=== PATIENT | male | born 1955 | race African-American/Black ===

== ENCOUNTER 2017-07-18 01:12 | Inpatient (IN) | payer MEDICARE, MEDICAID ==
[~2017-07-18] VITALS: Ht 172.7 cm; Wt 86.2 kg
[~2017-07-18 01:12] MED LIST: ALBU8TAB4; ALLO100T57 PO; ATOR20TA65; CALC0.253; COLC0.6T66; FLUT1DIS3 INH; FLUT50DI; FURO20TA4; OMEP40CA34; TDUR2; ZAFI20TA12 PO
[2017-07-18] MEDS ORDERED: ASPIRIN 81MG TABLET PO ONE (02:00)
[2017-07-18 02:23] LABS: BG CARBOXYHEMOGLOBIN 0.6 % (0.5-1.5); BG DEOXYHEMOGLOBIN 1.3 % (0.0-5.0); BG FRACTION INSPIRED OXYGEN 28; BG HCO3 ACT 30.7 mmol/L (22.0-26.0); BG METHEMOGLOBIN 0.1 % (0.0-1.5); BG OXYGEN SATURATION 98.7 % (92.0-98.5); BG PCO2 36.1 mmHg (35.0-45.0); BG PH 7.548 (7.350-7.450); BG PO2 120.5 mmHg (75.0-100.0); BG SAMPLE SITE RIGHT RADIAL; BG TOTAL HEMOGLOBIN 12.2 g/dL (12.0-18.0); BG VENT MODE NASAL CANNULA
[2017-07-18 02:42] LABS: HEMATOCRIT. 35.6 % (42.0-52.0); HEMOGLOBIN. 11.2 g/dL (14.0-18.0); MEAN CORPUSCULAR HEMOGLOBIN 29.1 pg (28.0-32.0); MEAN CORPUSCULAR VOLUME 92.2 fL (80.0-94.0); MEAN PLATELET VOLUME 9.2 fl (7.4-10.4); PLATELET 153 x1000/uL (130-400); RED BLOOD CELL COUNT 3.86 mill/uL (4.7-6.1); RED CELL DISTRIBUTION WIDTH 15.9 % (11.6-14.6)
[2017-07-18 02:48] LABS: D-DIMER 1.32 mg/L FEU (<0.50); INR 1.2; PARTIAL THROMBOPLASTIN TIME 32.9 sec (23.4-31.0); PROTHROMBIN TIME 12.1 sec (9.4-11.6)
[2017-07-18 02:54] LABS: CARBON DIOXIDE 38 mEq/L (21-32); CHLORIDE 96 mEq/L (98-107); ETHANOL BLOOD < 10 mg/dL; TROPONIN I 0.08 ng/mL (0.00-0.04)
[2017-07-18 03:29] LABS: PLATELET ESTIMATE NORMAL
[2017-07-18] MEDS ORDERED: TRAMADOL 50MG TABLET PO PRN (06:45)
[2017-07-18] MEDS ORDERED: DOCUSATE SODIUM 100MG CAPSULE PO PRN (06:45)
[2017-07-18] MEDS ORDERED: MORPHINE SULFATE 2 MG/ML CPJ (NOT FOR IM USE) IV PRN (06:45)
[2017-07-18] MEDS ORDERED: ENOXAPARIN 40MG/0.4ML SYR SUBCUT SCH (06:45)
[2017-07-18] MEDS ORDERED: GUAIFENESIN 200MG/10ML SUGAR FREE UDC PO PRN (06:45)
[2017-07-18] MEDS ORDERED: ZOLPIDEM TARTRATE 5MG TABLET PO PRN (06:45)
[2017-07-18] MEDS ORDERED: MAGNESIUM/ALUMINUM HYDROXIDE/SIMETHICONE 30ML UDC PO PRN (06:45)
[2017-07-18] MEDS ORDERED: ACETAMINOPHEN 325MG TABLET PO PRN (06:45)
[2017-07-18] MEDS ORDERED: CLONIDINE 0.1MG TABLET PO PRN (06:45)
[2017-07-18] MEDS ORDERED: ONDANSETRON HCL 4MG/2ML VIAL IV PRN (06:45)
[2017-07-18] MEDS ORDERED: DIPHENHYDRAMINE 50MG/ML VIAL IV PRN (06:45)
[2017-07-18] MEDS ORDERED: NITROGLYCERIN 0.4MG TABLET SL SL PRN (06:45)
[2017-07-18] MEDS: IPRATROPIUM/ALBUTEROL 0.5-3(2.5)MG/3ML NEB INH PRN (07:45)
[2017-07-18] MEDS: SEVELAMER CARBONATE 800 MG TABLET PO SCH ×2 (08:53→17:20)
[2017-07-18] MEDS: FAMOTIDINE 20MG/2ML VIAL IV SCH (08:53)
[2017-07-18] MEDS: ASPIRIN 325MG EC TABLET PO SCH ×3 (08:53→09:00)
[2017-07-18] MEDS: FOLIC ACID/VITAMIN B COMP W-C TABLET PO SCH (08:53)
[2017-07-18] MEDS: ENOXAPARIN 30MG/0.3ML SYR SUBCUT SCH (09:00)
[2017-07-18] MEDS ORDERED: FAMOTIDINE 20MG/2ML VIAL IV SCH (09:00)
[2017-07-18] MEDS ORDERED: DILTIAZEM HCL 30MG TABLET PO SCH (14:15)
[2017-07-18 15:20] VITALS: BP 120/72
[2017-07-18 16:11] VITALS: BP 91/63
[2017-07-18] MEDS ORDERED: MORPHINE SULFATE 4 MG/ML CPJ (NOT FOR IM USE) IV PRN (17:45)
[2017-07-18 19:49] LABS: CREATINE KINASE MB FRACTION 0.8 ng/mL (0.5-3.6); TROPONIN I 0.06 ng/mL (0.00-0.04)
[2017-07-18 20:00] VITALS: BP 102/66
[2017-07-18] MEDS: DILTIAZEM HCL 30MG TABLET PO SCH (20:00)
[2017-07-18] MEDS: LORAZEPAM 2MG/ML CPJ IV PRN (20:02)
[2017-07-19] VITALS: BP 110/65
[2017-07-19] MEDS: LORAZEPAM 2MG/ML CPJ IV PRN ×4 (01:04→21:35)
[2017-07-19] MEDS: DILTIAZEM HCL 30MG TABLET PO SCH ×4 (01:04→20:00)
[2017-07-19 04:00] VITALS: BP 94/69
[2017-07-19 07:18] LABS: HEMATOCRIT. 34.8 % (42.0-52.0); MEAN CORPUSCULAR HEMOGLOBIN 29.2 pg (28.0-32.0); MEAN CORPUSCULAR VOLUME 92.3 fL (80.0-94.0); MEAN PLATELET VOLUME 9.9 fl (7.4-10.4); PLATELET 121 x1000/uL (130-400); RED BLOOD CELL COUNT 3.77 mill/uL (4.7-6.1)
[2017-07-19 07:22] LABS: PHOSPHORUS 3.3 mg/dL (2.5-4.9); TROPONIN I 0.05 ng/mL (0.00-0.04)
[2017-07-19] MEDS: SEVELAMER CARBONATE 800 MG TABLET PO SCH ×3 (07:50→17:50)
[2017-07-19 08:00] VITALS: BP 103/61
[2017-07-19] MEDS ORDERED: MIDODRINE HCL 5MG TABLET PO NR (09:00)
[2017-07-19] MEDS: ALLOPURINOL 100 MG TABLET PO SCH (09:00)
[2017-07-19] MEDS: ASPIRIN 325MG EC TABLET PO SCH (09:00)
[2017-07-19] MEDS: ENOXAPARIN 30MG/0.3ML SYR SUBCUT SCH (09:00)
[2017-07-19] MEDS: FAMOTIDINE 20MG/2ML VIAL IV SCH (09:00)
[2017-07-19] MEDS: FOLIC ACID/VITAMIN B COMP W-C TABLET PO SCH (09:00)
[2017-07-19 11:38] LABS: *AMPHETAMINES SCREEN URINE NEGATIVE (NEGATIVE); *BARBITURATES SCREEN URINE NEGATIVE (NEGATIVE); *BENZODIAZEPINES SCREEN URINE NEGATIVE (NEGATIVE); *COCAINE SCREEN URINE NEGATIVE (NEGATIVE); CANNABINOID URINE SCREEN NEGATIVE (NEGATIVE); METHADONE URINE SCREEN NEGATIVE (NEGATIVE); OPIATES URINE SCREEN NEGATIVE (NEGATIVE); PHENCYCLIDINE URINE SCREEN NEGATIVE (NEGATIVE)
[2017-07-19 15:00] VITALS: BP 93/57
[2017-07-19 16:00] VITALS: BP 94/69
[2017-07-19 17:02] LABS: PLATELET ESTIMATE DECREASED
[2017-07-19 19:13] VITALS: BP 97/70
[2017-07-19] MEDS ORDERED: PREDNISONE 20MG TABLET PO NR (20:00)
[2017-07-19] MEDS ORDERED: FAMOTIDINE 20MG TABLET PO ONE (20:00)
[2017-07-19] MEDS ORDERED: ENOXAPARIN 30MG/0.3ML SYR SUBCUT NR (21:00)
[2017-07-20] VITALS (10 sets, daily range): BP systolic 94–139; BP diastolic 39–80
[2017-07-20] MEDS: DILTIAZEM HCL 30MG TABLET PO SCH ×4 (02:27→20:00)
[2017-07-20 07:44] LABS: BASOPHILS % 0.4 % (0.0-2.0); EOSINOPHILS % 0.2 % (0.0-5.0); HEMATOCRIT. 40.6 % (42.0-52.0); HEMOGLOBIN. 12.9 g/dL (14.0-18.0); LYMPHOCYTES % 8.6 % (20.0-50.0); MEAN CORPUSCULAR HEMOGLOBIN 29.2 pg (28.0-32.0); MEAN CORPUSCULAR VOLUME 92.2 fL (80.0-94.0); MEAN PLATELET VOLUME 10.2 fl (7.4-10.4); MONOCYTES % 4.9 % (2.0-8.0); NEUTROPHILS % 85.9 % (40.0-76.0); PLATELET 125 x1000/uL (130-400); RED BLOOD CELL COUNT 4.41 mill/uL (4.7-6.1); RED CELL DISTRIBUTION WIDTH 15.9 % (11.6-14.6)
[2017-07-20] MEDS: SEVELAMER CARBONATE 800 MG TABLET PO SCH ×3 (07:50→18:31)
[2017-07-20 07:59] LABS: PHOSPHORUS 3.6 mg/dL (2.5-4.9); TROPONIN I 0.04 ng/mL (0.00-0.04)
[2017-07-20] MEDS ORDERED: FAMOTIDINE 20MG TABLET PO NR (08:00)
[2017-07-20] MEDS ORDERED: PREDNISONE 20MG TABLET PO NR (08:00)
[2017-07-20] MEDS: FOLIC ACID/VITAMIN B COMP W-C TABLET PO SCH (08:41)
[2017-07-20] MEDS: ASPIRIN 325MG EC TABLET PO SCH (08:41)
[2017-07-20] MEDS: ALLOPURINOL 100 MG TABLET PO SCH (08:41)
[2017-07-20] MEDS: FAMOTIDINE 20MG/2ML VIAL IV SCH ×2 (08:42→09:00)
[2017-07-20] MEDS ORDERED: LIDOCAINE HCL 1% 20ML VIAL (Pyxis) INJ ONE (11:05)
[2017-07-20] MEDS ORDERED: IODIXANOL 320MG/ML 100 ML BOTTLE IV ONE (11:06)
[2017-07-20] MEDS ORDERED: MIDAZOLAM HCL 2 MG/2 ML VIAL ONE (11:14)
[2017-07-20] MEDS ORDERED: FENTANYL CITRATE/PF 50MCG/ML 2ML VIAL ONE (11:14)
[2017-07-20] MEDS ORDERED: MORPHINE SULFATE 2 MG/ML CPJ (NOT FOR IM USE) IV PRN (11:15)
[2017-07-20] MEDS ORDERED: ATROPINE SULFATE 1MG/10ML SYR IV PRN (11:15)
[2017-07-20] MEDS ORDERED: ACETAMINOPHEN 325MG TABLET PO PRN (11:15)
[2017-07-20] MEDS ORDERED: HEPARIN SODIUM 1,000 UNIT/1ML VIAL IV ONE ×2 (11:16→11:30)
[2017-07-20] MEDS ORDERED: HYDROCORTISONE SOD SUCCINATE 250 MG/2 ML VIAL ONE (11:19)
[2017-07-20] MEDS ORDERED: DIPHENHYDRAMINE 50MG/ML VIAL ONE (11:19)
[2017-07-20] MEDS ORDERED: FAMOTIDINE 20MG/2ML VIAL IV ONE (11:20)
[2017-07-20] MEDS ORDERED: NITROGLYCERIN 50MCG/ML 10ML VIAL (CATH LAB) IV ONE (14:16)
[2017-07-21] VITALS (17 sets, daily range): BP systolic 82–120; BP diastolic 39–88
[2017-07-21] MEDS: DILTIAZEM HCL 30MG TABLET PO SCH ×4 (01:50→20:28)
[2017-07-21 07:48] LABS: PHOSPHORUS 3.9 mg/dL (2.5-4.9)
[2017-07-21 07:53] LABS: BASOPHILS % 0.4 % (0.0-2.0); EOSINOPHILS % 0.1 % (0.0-5.0); HEMATOCRIT. 37.9 % (42.0-52.0); HEMOGLOBIN. 11.9 g/dL (14.0-18.0); LYMPHOCYTES % 9.6 % (20.0-50.0); MEAN CORPUSCULAR HEMOGLOBIN 29.2 pg (28.0-32.0); MEAN CORPUSCULAR VOLUME 92.8 fL (80.0-94.0); MEAN PLATELET VOLUME 10.5 fl (7.4-10.4); MONOCYTES % 13.3 % (2.0-8.0); NEUTROPHILS % 76.6 % (40.0-76.0); PLATELET 127 x1000/uL (130-400); RED BLOOD CELL COUNT 4.08 mill/uL (4.7-6.1); RED CELL DISTRIBUTION WIDTH 15.8 % (11.6-14.6)
[2017-07-21] MEDS: FOLIC ACID/VITAMIN B COMP W-C TABLET PO SCH (08:32)
[2017-07-21] MEDS: SEVELAMER CARBONATE 800 MG TABLET PO SCH ×3 (08:32→18:17)
[2017-07-21] MEDS: ASPIRIN 325MG EC TABLET PO SCH (08:32)
[2017-07-21] MEDS: ALLOPURINOL 100 MG TABLET PO SCH (08:33)
[2017-07-21] MEDS: FAMOTIDINE 20MG/2ML VIAL IV SCH (08:36)
[2017-07-21] MEDS: MIDODRINE HCL 5MG TABLET PO SCH ×2 (08:36→16:26)
[2017-07-21] MEDS ORDERED: MIDODRINE HCL 5MG TABLET PO SCH (10:00)
[2017-07-21] MEDS: ENOXAPARIN 80MG/0.8ML SYR SUBCUT SCH (14:22)
[2017-07-21] MEDS ORDERED: ALTEPLASE 2MG/VIAL ITC NR (15:00)
[2017-07-22] VITALS (19 sets, daily range): BP systolic 84–129; BP diastolic 54–88
[2017-07-22] MEDS: IPRATROPIUM/ALBUTEROL 0.5-3(2.5)MG/3ML NEB INH PRN ×2 (00:55→06:19)
[2017-07-22] MEDS: DILTIAZEM HCL 30MG TABLET PO SCH ×4 (02:00→20:00)
[2017-07-22 07:26] LABS: PHOSPHORUS 2.9 mg/dL (2.5-4.9)
[2017-07-22 07:47] LABS: HEMATOCRIT. 39.4 % (42.0-52.0); HEMOGLOBIN. 12.6 g/dL (14.0-18.0); MEAN CORPUSCULAR HEMOGLOBIN 29.1 pg (28.0-32.0); MEAN CORPUSCULAR VOLUME 91.2 fL (80.0-94.0); MEAN PLATELET VOLUME 10.7 fl (7.4-10.4); PLATELET 101 x1000/uL (130-400); RED BLOOD CELL COUNT 4.31 mill/uL (4.7-6.1); RED CELL DISTRIBUTION WIDTH 15.9 % (11.6-14.6)
[2017-07-22] MEDS: ALLOPURINOL 100 MG TABLET PO SCH (08:50)
[2017-07-22] MEDS: ASPIRIN 325MG EC TABLET PO SCH (08:50)
[2017-07-22] MEDS: FAMOTIDINE 20MG TABLET PO SCH (08:50)
[2017-07-22] MEDS: SEVELAMER CARBONATE 800 MG TABLET PO SCH ×3 (08:50→17:55)
[2017-07-22] MEDS: FOLIC ACID/VITAMIN B COMP W-C TABLET PO SCH (08:51)
[2017-07-22] MEDS: MIDODRINE HCL 5MG TABLET PO SCH ×2 (08:51→17:55)
[2017-07-22] MEDS: ENOXAPARIN 80MG/0.8ML SYR SUBCUT SCH (12:00)
[2017-07-22 14:15] LABS: PLATELET ESTIMATE DECREASED
[2017-07-23] VITALS (15 sets, daily range): BP systolic 83–112; BP diastolic 45–78
[2017-07-23] MEDS: DILTIAZEM HCL 30MG TABLET PO SCH ×4 (02:00→20:00)
[2017-07-23 06:10] LABS: BASOPHILS % 0.9 % (0.0-2.0); EOSINOPHILS % 6.4 % (0.0-5.0); HEMATOCRIT. 38.1 % (42.0-52.0); LYMPHOCYTES % 21.4 % (20.0-50.0); MEAN CORPUSCULAR HEMOGLOBIN 29.4 pg (28.0-32.0); MEAN CORPUSCULAR VOLUME 93.3 fL (80.0-94.0); MEAN PLATELET VOLUME 10.3 fl (7.4-10.4); MONOCYTES % 11.5 % (2.0-8.0); NEUTROPHILS % 59.8 % (40.0-76.0); PLATELET 122 x1000/uL (130-400); RED BLOOD CELL COUNT 4.08 mill/uL (4.7-6.1); RED CELL DISTRIBUTION WIDTH 16.2 % (11.6-14.6)
[2017-07-23 06:35] LABS: PHOSPHORUS 3.7 mg/dL (2.5-4.9)
[2017-07-23] MEDS: SEVELAMER CARBONATE 800 MG TABLET PO SCH ×3 (07:52→17:57)
[2017-07-23] MEDS: ASPIRIN 325MG EC TABLET PO SCH (08:00)
[2017-07-23] MEDS: FAMOTIDINE 20MG TABLET PO SCH (08:01)
[2017-07-23] MEDS: FOLIC ACID/VITAMIN B COMP W-C TABLET PO SCH (08:02)
[2017-07-23] MEDS ORDERED: MIDODRINE HCL 5MG TABLET PO SCH ×3 (09:00→21:00)
[2017-07-23] MEDS: ALLOPURINOL 100 MG TABLET PO SCH (10:17)
[2017-07-23] MEDS: ENOXAPARIN 80MG/0.8ML SYR SUBCUT SCH (12:31)
[2017-07-23] MEDS: MIDODRINE HCL 5MG TABLET PO SCH ×2 (14:31→22:11)
[2017-07-24] VITALS (12 sets, daily range): BP systolic 92–171; BP diastolic 40–108
[2017-07-24] MEDS: DILTIAZEM HCL 30MG TABLET PO SCH ×3 (02:00→14:48)
[2017-07-24 06:02] LABS: HEMATOCRIT. 34.1 % (42.0-52.0); HEMOGLOBIN. 10.9 g/dL (14.0-18.0); MEAN CORPUSCULAR HEMOGLOBIN 29.2 pg (28.0-32.0); MEAN CORPUSCULAR VOLUME 91.6 fL (80.0-94.0); MEAN PLATELET VOLUME 9.9 fl (7.4-10.4); PLATELET 102 x1000/uL (130-400); RED BLOOD CELL COUNT 3.72 mill/uL (4.7-6.1); RED CELL DISTRIBUTION WIDTH 16.1 % (11.6-14.6)
[2017-07-24] MEDS: MIDODRINE HCL 5MG TABLET PO SCH ×2 (06:11→14:44)
[2017-07-24 07:35] LABS: PHOSPHORUS 3.6 mg/dL (2.5-4.9)
[2017-07-24] MEDS: SEVELAMER CARBONATE 800 MG TABLET PO SCH ×2 (07:46→12:20)
[2017-07-24] MEDS: ASPIRIN 325MG EC TABLET PO SCH (08:01)
[2017-07-24] MEDS: FOLIC ACID/VITAMIN B COMP W-C TABLET PO SCH (08:01)
[2017-07-24] MEDS: ALLOPURINOL 100 MG TABLET PO SCH (08:01)
[2017-07-24] MEDS: FAMOTIDINE 20MG TABLET PO SCH (08:01)
[2017-07-24] MEDS ORDERED: DOCUSATE SODIUM 100MG CAPSULE PO SCH (09:00)
[2017-07-24] MEDS ORDERED: HEPARIN SODIUM 1,000 UNIT/1ML VIAL IV ONE ×2 (11:00)
[2017-07-24] MEDS: METOCLOPRAMIDE HCL 5MG TABLET PO SCH ×2 (11:50→13:51)
[2017-07-24] MEDS: ENOXAPARIN 80MG/0.8ML SYR SUBCUT SCH ×2 (12:00→13:51)
[2017-07-24 16:45] LABS: PLATELET ESTIMATE DECREASED
== END 2017-07-24 15:50 | DRG 286 ==
LOC: ER 01:12 → 6WST 03:19 → SUPCPDRO 06:35 → ENRESERV 11:41 → CANRESERV 11:41 → ENRESERV 13:24 → 3WST 07-20 13:09
PROVIDERS: ADMIT Internal Medicine; ATTEND Internal Medicine
PROC: 5A1D60Z (ICD-10-PCS; 2017-07-19)
PROC: 4A023N7 Measurement of Cardiac Sampling and Pressure, Left Heart, Percutaneous Approach (ICD-10-PCS; principal; 2017-07-20)
PROC: B2111ZZ Fluoroscopy of Multiple Coronary Arteries using Low Osmolar Contrast (ICD-10-PCS; 2017-07-20)
DX: I13.2 Hypertensive heart and chronic kidney disease with heart failure and with stage 5 chronic kidney disease, or end stage renal disease (principal); E43 Unspecified severe protein-calorie malnutrition; J96.01 Acute respiratory failure with hypoxia; N18.6 End stage renal disease; I42.9 Cardiomyopathy, unspecified; D69.6 Thrombocytopenia, unspecified; I48.1 Persistent atrial fibrillation; I50.43 Acute on chronic combined systolic (congestive) and diastolic (congestive) heart failure; I95.9 Hypotension, unspecified; Z99.81 Dependence on supplemental oxygen; Z99.2 Dependence on renal dialysis; D63.8 Anemia in other chronic diseases classified elsewhere; E78.00 Pure hypercholesterolemia, unspecified; E87.6 Hypokalemia; G62.9 Polyneuropathy, unspecified; H54.8 Legal blindness, as defined in USA; I25.10 Atherosclerotic heart disease of native coronary artery without angina pectoris; I95.1 Orthostatic hypotension; J44.9 Chronic obstructive pulmonary disease, unspecified; M10.9 Gout, unspecified; Z82.49 Family history of ischemic heart disease and other diseases of the circulatory system; Z90.49 Acquired absence of other specified parts of digestive tract; Z86.19 Personal history of other infectious and parasitic diseases; Z91.013 Allergy to seafood; E66.9 Obesity, unspecified; J45.909 Unspecified asthma, uncomplicated; Z79.899 Other long term (current) drug therapy; Z90.89 Acquired absence of other organs; Z80.9 Family history of malignant neoplasm, unspecified; Z84.1 Family history of disorders of kidney and ureter; Z68.28 Body mass index [BMI] 28.0-28.9, adult
CPT/HCPCS: 36415; 36600; 71010; 78580; 80048; 80053; 80061; 80305; 82375; 82550; 82553; 82805; 83036; 83605; 83735; 83880; 84100; 84134; 84484; 85025; 85347; 85379; 85610; 85730; 93005; 93306; 93458; 93970; 94640; 97110; 97162; 97166; 97168; 97530; 99285; C1769; C1893; G0482; J1200; J1644; J1650; J1720; J2060; J2250; J2405; J2997; J3010; J3490; J7030; J7040; J7512; J7620; J8597; Q9967

== ENCOUNTER 2017-07-24 16:15 | Inpatient (IN) | payer MEDICARE, MEDICAID ==
[~2017-07-24] VITALS: Ht 172.7 cm; Wt 86.2 kg
[2017-07-24 15:45] VITALS: BP 98/71
[2017-07-24] MEDS ORDERED: MAGNESIUM/ALUMINUM HYDROXIDE/SIMETHICONE 30ML UDC PO PRN (17:45)
[2017-07-24] MEDS ORDERED: DIPHENHYDRAMINE 25MG CAPSULE PO PRN (17:45)
[2017-07-24] MEDS ORDERED: TRAMADOL 50MG TABLET PO PRN (17:45)
[2017-07-24] MEDS ORDERED: NITROGLYCERIN 0.4MG TABLET SL SL PRN (17:45)
[2017-07-24] MEDS ORDERED: CLONIDINE 0.1MG TABLET PO PRN (17:45)
[2017-07-24] MEDS ORDERED: ACETAMINOPHEN 325MG TABLET PO PRN (17:45)
[2017-07-24] MEDS: DILTIAZEM HCL 30MG TABLET PO SCH (18:00)
[2017-07-24 19:00] VITALS: BP 109/74
[2017-07-24] MEDS: IPRATROPIUM/ALBUTEROL 0.5-3(2.5)MG/3ML NEB HHN PRN (21:12)
[2017-07-24] MEDS: METOCLOPRAMIDE HCL 5MG TABLET PO SCH (22:19)
[2017-07-25] MEDS: IPRATROPIUM/ALBUTEROL 0.5-3(2.5)MG/3ML NEB HHN PRN ×2 (00:44→04:12)
[2017-07-25] MEDS: DILTIAZEM HCL 30MG TABLET PO SCH ×4 (05:50→17:32)
[2017-07-25] MEDS: METOCLOPRAMIDE HCL 5MG TABLET PO SCH ×4 (05:52→23:04)
[2017-07-25 08:00] VITALS: BP 110/81
[2017-07-25 08:03] LABS: HEMATOCRIT. 37.1 % (42.0-52.0); HEMOGLOBIN. 11.8 g/dL (14.0-18.0); MEAN CORPUSCULAR HEMOGLOBIN 29.3 pg (28.0-32.0); MEAN CORPUSCULAR VOLUME 92.1 fL (80.0-94.0); MEAN PLATELET VOLUME 10.4 fl (7.4-10.4); PLATELET 94 x1000/uL (130-400); RED BLOOD CELL COUNT 4.03 mill/uL (4.7-6.1); RED CELL DISTRIBUTION WIDTH 16.4 % (11.6-14.6)
[2017-07-25] MEDS: DOCUSATE SODIUM 100MG CAPSULE PO SCH ×2 (08:20→17:31)
[2017-07-25] MEDS: ASPIRIN 325MG EC TABLET PO SCH (08:20)
[2017-07-25] MEDS: FOLIC ACID/VITAMIN B COMP W-C TABLET PO SCH (08:20)
[2017-07-25] MEDS: ENOXAPARIN 80MG/0.8ML SYR SUBCUT SCH (08:21)
[2017-07-25] MEDS: MIDODRINE HCL 5MG TABLET PO SCH ×3 (08:22→17:32)
[2017-07-25] MEDS ORDERED: ALLOPURINOL 100 MG TABLET PO SCH (09:00)
[2017-07-25] MEDS ORDERED: FAMOTIDINE 20MG TABLET PO SCH (09:00)
[2017-07-25] MEDS ORDERED: SEVELAMER CARBONATE 800 MG TABLET PO SCH (09:00)
[2017-07-25 12:00] VITALS: BP 106/69
[2017-07-25 13:21] LABS: PLATELET ESTIMATE SLIGHTLY DECREASED
[2017-07-25] MEDS ORDERED: ALPRAZOLAM 0.5 MG TABLET PO PRN (16:30)
[2017-07-25 17:30] VITALS: BP 100/82
[2017-07-25 20:00] VITALS: BP 112/69
[2017-07-25] MEDS: BUDESONIDE 0.5MG/2ML NEB HHN SCH (21:26)
[2017-07-25] MEDS: IPRATROPIUM/ALBUTEROL 0.5-3(2.5)MG/3ML NEB HHN SCH (21:28)
[2017-07-26] MEDS: IPRATROPIUM/ALBUTEROL 0.5-3(2.5)MG/3ML NEB HHN SCH ×4 (03:49→20:41)
[2017-07-26] MEDS: DILTIAZEM HCL 30MG TABLET PO SCH ×4 (06:00→17:56)
[2017-07-26] MEDS: OMEPRAZOLE 20MG CAPSULE EXTENDED RELEASE PO SCH (06:33)
[2017-07-26] MEDS: METOCLOPRAMIDE HCL 5MG TABLET PO SCH ×4 (06:33→22:41)
[2017-07-26 07:31] LABS: CARBON DIOXIDE 22 mEq/L (21-32); CHLORIDE 104 mEq/L (98-107); HDL CHOLESTEROL 65 mg/dL (40-59); LDL CHOLESTEROL 39 mg/dL (5-100); PHOSPHORUS 4.1 mg/dL (2.5-4.9)
[2017-07-26 07:33] LABS: HEMATOCRIT. 35.2 % (42.0-52.0); HEMOGLOBIN. 11.2 g/dL (14.0-18.0); MEAN CORPUSCULAR HEMOGLOBIN 29.3 pg (28.0-32.0); MEAN PLATELET VOLUME 10.1 fl (7.4-10.4); PLATELET 95 x1000/uL (130-400); RED BLOOD CELL COUNT 3.83 mill/uL (4.7-6.1); RED CELL DISTRIBUTION WIDTH 16.5 % (11.6-14.6)
[2017-07-26 07:36] LABS: PROSTRATE SPECIFIC AG TOTAL 0.36 ng/mL (0.0-4.0)
[2017-07-26 07:42] LABS: TOTAL IRON BINDING CAPACITY 233 ug/dL (250-450)
[2017-07-26 08:00] VITALS: BP 112/68
[2017-07-26] MEDS: BUDESONIDE 0.5MG/2ML NEB HHN SCH ×2 (08:09→20:41)
[2017-07-26] MEDS ORDERED: ALPRAZOLAM 0.5 MG TABLET PO PRN ×2 (08:45→16:45)
[2017-07-26] MEDS: FOLIC ACID/VITAMIN B COMP W-C TABLET PO SCH (09:29)
[2017-07-26] MEDS: DOCUSATE SODIUM 100MG CAPSULE PO SCH ×2 (09:30→16:08)
[2017-07-26] MEDS: MIDODRINE HCL 5MG TABLET PO SCH ×3 (09:30→16:09)
[2017-07-26] MEDS: ASPIRIN 325MG EC TABLET PO SCH (09:30)
[2017-07-26] MEDS: ENOXAPARIN 80MG/0.8ML SYR SUBCUT SCH (09:31)
[2017-07-26 15:16] LABS: INR 1.1; PROTHROMBIN TIME 11.4 sec (9.4-11.6)
[2017-07-26] MEDS ORDERED: ALTEPLASE 100MG/VIAL IV STA ×2 (17:32→17:37)
[2017-07-26] MEDS ORDERED: ALTEPLASE 2MG/VIAL ITC SCH (17:45)
[2017-07-26] MEDS ORDERED: WARFARIN SODIUM 7.5MG TABLET PO SCH (18:00)
[2017-07-26] MEDS ORDERED: WARFARIN SODIUM 5MG TABLET PO NR (19:18)
[2017-07-26 20:00] VITALS: BP 117/90
[2017-07-26 20:29] LABS: PLATELET ESTIMATE DECREASED
[2017-07-27] MEDS: IPRATROPIUM/ALBUTEROL 0.5-3(2.5)MG/3ML NEB HHN SCH ×4 (01:06→20:52)
[2017-07-27] MEDS: ALPRAZOLAM 0.25 MG TABLET PO PRN ×2 (02:28→21:14)
[2017-07-27] MEDS: DILTIAZEM HCL 30MG TABLET PO SCH ×5 (06:42→23:55)
[2017-07-27] MEDS: METOCLOPRAMIDE HCL 5MG TABLET PO SCH ×4 (06:44→21:14)
[2017-07-27 07:02] LABS: INR 1.1; PROTHROMBIN TIME 11.7 sec (9.4-11.6)
[2017-07-27 07:03] LABS: HEMATOCRIT. 36.7 % (42.0-52.0); HEMOGLOBIN. 11.6 g/dL (14.0-18.0); MEAN CORPUSCULAR HEMOGLOBIN 29.2 pg (28.0-32.0); MEAN CORPUSCULAR VOLUME 92.3 fL (80.0-94.0); MEAN PLATELET VOLUME 10.2 fl (7.4-10.4); PLATELET 87 x1000/uL (130-400); RED BLOOD CELL COUNT 3.97 mill/uL (4.7-6.1); RED CELL DISTRIBUTION WIDTH 16.7 % (11.6-14.6)
[2017-07-27] MEDS: BUDESONIDE 0.5MG/2ML NEB HHN SCH ×2 (07:36→20:52)
[2017-07-27 07:42] LABS: CARBON DIOXIDE 23 mEq/L (21-32); CHLORIDE 103 mEq/L (98-107); T4 FREE 1.59 ng/dL (0.76-1.46)
[2017-07-27] MEDS: OMEPRAZOLE 20MG CAPSULE EXTENDED RELEASE PO SCH (07:55)
[2017-07-27 08:00] VITALS: BP 118/88
[2017-07-27] MEDS: ENOXAPARIN 80MG/0.8ML SYR SUBCUT SCH (09:15)
[2017-07-27] MEDS: DOCUSATE SODIUM 100MG CAPSULE PO SCH ×2 (09:15→18:07)
[2017-07-27] MEDS: FOLIC ACID/VITAMIN B COMP W-C TABLET PO SCH (09:15)
[2017-07-27] MEDS: ASPIRIN 325MG EC TABLET PO SCH (09:15)
[2017-07-27] MEDS: MIDODRINE HCL 5MG TABLET PO SCH ×3 (09:15→18:07)
[2017-07-27] MEDS ORDERED: CARVEDILOL 12.5MG TABLET PO SCH (10:00)
[2017-07-27] MEDS: ONDANSETRON HCL 4MG TABLET PO PRN (13:41)
[2017-07-27] MEDS: ERYTHROMYCIN 250MG TABLET PO SCH ×2 (14:14→21:14)
[2017-07-27 15:47] LABS: PLATELET ESTIMATE DECREASED
[2017-07-27 20:00] VITALS: BP 131/88
[2017-07-28] MEDS: IPRATROPIUM/ALBUTEROL 0.5-3(2.5)MG/3ML NEB HHN SCH ×4 (01:50→23:05)
[2017-07-28] MEDS: DILTIAZEM HCL 30MG TABLET PO SCH ×3 (05:23→17:29)
[2017-07-28] MEDS: METOCLOPRAMIDE HCL 5MG TABLET PO SCH ×3 (06:01→17:29)
[2017-07-28] MEDS: OMEPRAZOLE 20MG CAPSULE EXTENDED RELEASE PO SCH (06:01)
[2017-07-28 07:17] LABS: HEMATOCRIT. 35.5 % (42.0-52.0); HEMOGLOBIN. 11.3 g/dL (14.0-18.0); MEAN CORPUSCULAR HEMOGLOBIN 29.7 pg (28.0-32.0); MEAN CORPUSCULAR VOLUME 92.9 fL (80.0-94.0); MEAN PLATELET VOLUME 10.1 fl (7.4-10.4); PLATELET 89 x1000/uL (130-400); RED BLOOD CELL COUNT 3.82 mill/uL (4.7-6.1); RED CELL DISTRIBUTION WIDTH 16.6 % (11.6-14.6)
[2017-07-28 07:30] LABS: PHOSPHORUS 4.5 mg/dL (2.5-4.9)
[2017-07-28] MEDS: BUDESONIDE 0.5MG/2ML NEB HHN SCH (07:44)
[2017-07-28 08:00] VITALS: BP 101/70
[2017-07-28] MEDS: MIDODRINE HCL 5MG TABLET PO SCH ×3 (08:13→17:29)
[2017-07-28] MEDS: FOLIC ACID/VITAMIN B COMP W-C TABLET PO SCH (08:13)
[2017-07-28] MEDS: DOCUSATE SODIUM 100MG CAPSULE PO SCH ×2 (08:13→17:29)
[2017-07-28] MEDS: ASPIRIN 325MG EC TABLET PO SCH (08:13)
[2017-07-28] MEDS: PANTOT AC/MIN OIL/PET HY-PHL OINT 52.5GM (AQUAPHOR) TOP SCH (08:14)
[2017-07-28] MEDS ORDERED: ALPRAZOLAM 0.25 MG TABLET PO PRN (08:43)
[2017-07-28] MEDS ORDERED: CARVEDILOL 3.125 MG TABLET PO SCH (09:00)
[2017-07-28 20:00] VITALS: BP 112/74
[2017-07-28] MEDS ORDERED: METOPROLOL TARTRATE 25MG TABLET PO SCH (21:00)
[2017-07-28 21:34] LABS: PLATELET ESTIMATE DECREASED
[2017-07-29] MEDS: IPRATROPIUM/ALBUTEROL 0.5-3(2.5)MG/3ML NEB HHN SCH ×4 (02:59→21:18)
[2017-07-29] MEDS: DILTIAZEM HCL 30MG TABLET PO SCH ×4 (06:00→20:38)
[2017-07-29] MEDS: METOCLOPRAMIDE HCL 5MG TABLET PO SCH ×3 (06:52→16:07)
[2017-07-29] MEDS: OMEPRAZOLE 20MG CAPSULE EXTENDED RELEASE PO SCH (06:52)
[2017-07-29 08:00] VITALS: BP 103/70
[2017-07-29] MEDS: DOCUSATE SODIUM 100MG CAPSULE PO SCH ×2 (08:41→16:06)
[2017-07-29] MEDS: ASPIRIN 81MG EC TABLET PO SCH (08:41)
[2017-07-29] MEDS: FOLIC ACID/VITAMIN B COMP W-C TABLET PO SCH (08:41)
[2017-07-29] MEDS: MIDODRINE HCL 5MG TABLET PO SCH ×3 (08:41→16:07)
[2017-07-29] MEDS: METOPROLOL TARTRATE 25MG TABLET PO SCH ×2 (08:42→20:38)
[2017-07-29] MEDS: PANTOT AC/MIN OIL/PET HY-PHL OINT 52.5GM (AQUAPHOR) TOP SCH (08:43)
[2017-07-29 10:07] LABS: 25-HYDROXY VITAMIN D3 36 ng/mL (.)
[2017-07-29] MEDS: ONDANSETRON HCL 4MG TABLET PO PRN (18:16)
[2017-07-29 20:00] VITALS: BP 113/76
[2017-07-30] MEDS: IPRATROPIUM/ALBUTEROL 0.5-3(2.5)MG/3ML NEB HHN SCH ×5 (02:41→23:00)
[2017-07-30] MEDS: OMEPRAZOLE 20MG CAPSULE EXTENDED RELEASE PO SCH (06:01)
[2017-07-30] MEDS: METOCLOPRAMIDE HCL 5MG TABLET PO SCH ×3 (06:01→17:19)
[2017-07-30 08:00] VITALS: BP 101/76
[2017-07-30] MEDS: DILTIAZEM HCL 30MG TABLET PO SCH ×2 (08:42→21:46)
[2017-07-30] MEDS: DOCUSATE SODIUM 100MG CAPSULE PO SCH ×2 (08:47→17:19)
[2017-07-30] MEDS: FOLIC ACID/VITAMIN B COMP W-C TABLET PO SCH (08:48)
[2017-07-30] MEDS: METOPROLOL TARTRATE 25MG TABLET PO SCH ×2 (08:48→21:45)
[2017-07-30] MEDS: ASPIRIN 81MG EC TABLET PO SCH (08:48)
[2017-07-30] MEDS: MIDODRINE HCL 5MG TABLET PO SCH ×3 (08:49→17:19)
[2017-07-30] MEDS: PANTOT AC/MIN OIL/PET HY-PHL OINT 52.5GM (AQUAPHOR) TOP SCH (13:54)
[2017-07-30 20:00] VITALS: BP 107/76
[2017-07-30] MEDS: GUAIFENESIN 200MG/10ML SUGAR FREE UDC PO PRN (21:48)
[2017-07-31] MEDS: ONDANSETRON HCL 4MG TABLET PO PRN ×2 (01:44→09:40)
[2017-07-31] MEDS: IPRATROPIUM/ALBUTEROL 0.5-3(2.5)MG/3ML NEB HHN SCH ×4 (02:45→19:46)
[2017-07-31] MEDS: METOCLOPRAMIDE HCL 5MG TABLET PO SCH ×4 (06:58→23:45)
[2017-07-31] MEDS: OMEPRAZOLE 20MG CAPSULE EXTENDED RELEASE PO SCH (06:58)
[2017-07-31 07:22] LABS: HEMATOCRIT. 36.5 % (42.0-52.0); HEMOGLOBIN. 11.6 g/dL (14.0-18.0); MEAN CORPUSCULAR HEMOGLOBIN 29.5 pg (28.0-32.0); MEAN CORPUSCULAR VOLUME 93.1 fL (80.0-94.0); MEAN PLATELET VOLUME 10.5 fl (7.4-10.4); PLATELET 100 x1000/uL (130-400); RED BLOOD CELL COUNT 3.92 mill/uL (4.7-6.1); RED CELL DISTRIBUTION WIDTH 16.5 % (11.6-14.6)
[2017-07-31 07:50] LABS: T4 FREE 1.39 ng/dL (0.76-1.46)
[2017-07-31 08:00] VITALS: BP 112/88
[2017-07-31] MEDS ORDERED: ALPRAZOLAM 0.25 MG TABLET PO PRN (08:43)
[2017-07-31] MEDS: FOLIC ACID/VITAMIN B COMP W-C TABLET PO SCH (09:39)
[2017-07-31] MEDS: MIDODRINE HCL 5MG TABLET PO SCH ×3 (09:40→18:03)
[2017-07-31] MEDS: METOPROLOL TARTRATE 25MG TABLET PO SCH ×2 (09:40→23:48)
[2017-07-31] MEDS: DOCUSATE SODIUM 100MG CAPSULE PO SCH ×2 (09:54→18:04)
[2017-07-31] MEDS: ASPIRIN 81MG EC TABLET PO SCH (09:54)
[2017-07-31] MEDS: DILTIAZEM HCL 30MG TABLET PO SCH ×2 (09:54→23:47)
[2017-07-31] MEDS: PANTOT AC/MIN OIL/PET HY-PHL OINT 52.5GM (AQUAPHOR) TOP SCH (09:55)
[2017-07-31] MEDS: LACTULOSE 20G/30ML UDC PO SCH ×3 (09:56→20:00)
[2017-07-31 16:34] LABS: PLATELET ESTIMATE DECREASED
[2017-07-31] MEDS: FLUTICASONE PROPIONATE 50MCG/SPRAY BOTTLE BOTHNSTRLS SCH ×2 (18:06→23:52)
[2017-07-31 19:00] VITALS: BP 117/75
[2017-07-31] MEDS ORDERED: HEPARIN SODIUM 1,000 UNIT/1ML VIAL IV NR (19:45)
[2017-08-01] MEDS: IPRATROPIUM/ALBUTEROL 0.5-3(2.5)MG/3ML NEB HHN SCH ×4 (01:01→20:39)
[2017-08-01] MEDS: OMEPRAZOLE 20MG CAPSULE EXTENDED RELEASE PO SCH (06:45)
[2017-08-01] MEDS: METOCLOPRAMIDE HCL 5MG TABLET PO SCH ×4 (06:45→20:53)
[2017-08-01 08:00] VITALS: BP 105/71
[2017-08-01] MEDS: FLUTICASONE PROPIONATE 50MCG/SPRAY BOTTLE BOTHNSTRLS SCH ×2 (08:35→20:52)
[2017-08-01] MEDS: ASPIRIN 81MG EC TABLET PO SCH (08:36)
[2017-08-01] MEDS: DOCUSATE SODIUM 100MG CAPSULE PO SCH ×2 (08:36→17:30)
[2017-08-01] MEDS: FOLIC ACID/VITAMIN B COMP W-C TABLET PO SCH (08:36)
[2017-08-01] MEDS: PANTOT AC/MIN OIL/PET HY-PHL OINT 52.5GM (AQUAPHOR) TOP SCH (08:36)
[2017-08-01] MEDS: METOPROLOL TARTRATE 25MG TABLET PO SCH ×2 (08:40→20:54)
[2017-08-01] MEDS: MIDODRINE HCL 5MG TABLET PO SCH ×3 (08:41→17:31)
[2017-08-01] MEDS: DILTIAZEM HCL 30MG TABLET PO SCH ×2 (08:41→20:53)
[2017-08-01] MEDS ORDERED: HEPARIN SODIUM 1,000 UNIT/1ML VIAL IV SCH (10:30)
[2017-08-01 14:04] LABS: HEPATITIS B SURFACE ANTIGEN NEGATIVE
[2017-08-01 14:32] LABS: HEPATITIS B CORE AB IGM NEGATIVE
[2017-08-01 14:34] LABS: HEPATITIS A AB IGM NEGATIVE (NEGATIVE)
[2017-08-01] MEDS ORDERED: ALPRAZOLAM 0.25 MG TABLET PO PRN (16:43)
[2017-08-01 20:00] VITALS: BP 95/67
[2017-08-01] MEDS: POLYETHYLENE GLYCOL 3350 (17GM) 1 DOSE PACK PO SCH (20:53)
[2017-08-02] MEDS: IPRATROPIUM/ALBUTEROL 0.5-3(2.5)MG/3ML NEB HHN SCH ×3 (00:56→21:15)
[2017-08-02] MEDS: METOCLOPRAMIDE HCL 5MG TABLET PO SCH ×4 (06:07→20:54)
[2017-08-02] MEDS: OMEPRAZOLE 20MG CAPSULE EXTENDED RELEASE PO SCH (06:07)
[2017-08-02 06:35] LABS: HEMOGLOBIN. 10.2 g/dL (14.0-18.0); MEAN CORPUSCULAR HEMOGLOBIN 29.2 pg (28.0-32.0); MEAN CORPUSCULAR VOLUME 91.6 fL (80.0-94.0); MEAN PLATELET VOLUME 10.3 fl (7.4-10.4); PLATELET 111 x1000/uL (130-400); RED CELL DISTRIBUTION WIDTH 16.6 % (11.6-14.6)
[2017-08-02 07:26] LABS: CHLORIDE 104 mEq/L (98-107)
[2017-08-02 07:37] LABS: CARBON DIOXIDE 22 mEq/L (21-32); PHOSPHORUS 2.8 mg/dL (2.5-4.9)
[2017-08-02 08:00] VITALS: BP 96/73
[2017-08-02 08:42] VITALS: BP 96/73
[2017-08-02] MEDS: ONDANSETRON HCL 4MG TABLET PO PRN (08:45)
[2017-08-02] MEDS: DILTIAZEM HCL 30MG TABLET PO SCH ×2 (09:00→20:54)
[2017-08-02] MEDS: METOPROLOL TARTRATE 25MG TABLET PO SCH ×2 (09:00→20:54)
[2017-08-02] MEDS: MIDODRINE HCL 5MG TABLET PO SCH ×3 (10:06→18:04)
[2017-08-02] MEDS: FOLIC ACID/VITAMIN B COMP W-C TABLET PO SCH (10:06)
[2017-08-02] MEDS: ASPIRIN 81MG EC TABLET PO SCH (10:06)
[2017-08-02] MEDS: DOCUSATE SODIUM 100MG CAPSULE PO SCH ×2 (10:07→18:04)
[2017-08-02] MEDS: PANTOT AC/MIN OIL/PET HY-PHL OINT 52.5GM (AQUAPHOR) TOP SCH (10:08)
[2017-08-02] MEDS: FLUTICASONE PROPIONATE 50MCG/SPRAY BOTTLE BOTHNSTRLS SCH ×2 (10:08→20:54)
[2017-08-02 11:52] LABS: PLATELET ESTIMATE DECREASED
[2017-08-02 20:00] VITALS: BP 108/89
[2017-08-02] MEDS: POLYETHYLENE GLYCOL 3350 (17GM) 1 DOSE PACK PO SCH (20:54)
[2017-08-03] MEDS: IPRATROPIUM/ALBUTEROL 0.5-3(2.5)MG/3ML NEB HHN SCH ×4 (01:28→21:05)
[2017-08-03] MEDS: OMEPRAZOLE 20MG CAPSULE EXTENDED RELEASE PO SCH (06:20)
[2017-08-03] MEDS: METOCLOPRAMIDE HCL 5MG TABLET PO SCH ×4 (06:20→20:58)
[2017-08-03 06:40] LABS: HEMATOCRIT. 34.8 % (42.0-52.0); HEMOGLOBIN. 11.3 g/dL (14.0-18.0); MEAN CORPUSCULAR HEMOGLOBIN 29.8 pg (28.0-32.0); MEAN CORPUSCULAR VOLUME 91.3 fL (80.0-94.0); MEAN PLATELET VOLUME 10.6 fl (7.4-10.4); PLATELET 105 x1000/uL (130-400); RED BLOOD CELL COUNT 3.81 mill/uL (4.7-6.1); RED CELL DISTRIBUTION WIDTH 16.6 % (11.6-14.6)
[2017-08-03 08:00] VITALS: BP 97/61
[2017-08-03] MEDS: FOLIC ACID/VITAMIN B COMP W-C TABLET PO SCH (08:23)
[2017-08-03] MEDS: FLUTICASONE PROPIONATE 50MCG/SPRAY BOTTLE BOTHNSTRLS SCH (08:23)
[2017-08-03] MEDS: PANTOT AC/MIN OIL/PET HY-PHL OINT 52.5GM (AQUAPHOR) TOP SCH (08:23)
[2017-08-03] MEDS: ASPIRIN 81MG EC TABLET PO SCH (08:23)
[2017-08-03] MEDS: DOCUSATE SODIUM 100MG CAPSULE PO SCH ×2 (08:23→16:06)
[2017-08-03] MEDS: DILTIAZEM HCL 30MG TABLET PO SCH ×2 (08:24→20:57)
[2017-08-03] MEDS: METOPROLOL TARTRATE 25MG TABLET PO SCH ×2 (08:25→20:57)
[2017-08-03] MEDS: MIDODRINE HCL 5MG TABLET PO SCH ×3 (08:27→16:06)
[2017-08-03 11:00] LABS: PLATELET ESTIMATE DECREASED
[2017-08-03 12:07] VITALS: BP 97/74
[2017-08-03 16:00] VITALS: BP 96/70
[2017-08-03] MEDS: ONDANSETRON HCL 4MG TABLET PO PRN (18:07)
[2017-08-03 20:00] VITALS: BP 97/73
[2017-08-03] MEDS: POLYETHYLENE GLYCOL 3350 (17GM) 1 DOSE PACK PO SCH (20:58)
[2017-08-04] MEDS: IPRATROPIUM/ALBUTEROL 0.5-3(2.5)MG/3ML NEB HHN SCH ×4 (04:08→21:17)
[2017-08-04] MEDS: OMEPRAZOLE 20MG CAPSULE EXTENDED RELEASE PO SCH (06:00)
[2017-08-04] MEDS: METOCLOPRAMIDE HCL 5MG TABLET PO SCH ×4 (06:00→21:25)
[2017-08-04 06:47] LABS: HEMATOCRIT. 34.6 % (42.0-52.0); HEMOGLOBIN. 11.1 g/dL (14.0-18.0); MEAN CORPUSCULAR HEMOGLOBIN 29.4 pg (28.0-32.0); MEAN CORPUSCULAR VOLUME 91.6 fL (80.0-94.0); MEAN PLATELET VOLUME 10.8 fl (7.4-10.4); PLATELET 112 x1000/uL (130-400); RED BLOOD CELL COUNT 3.77 mill/uL (4.7-6.1)
[2017-08-04 08:00] VITALS: BP 106/72
[2017-08-04] MEDS: FOLIC ACID/VITAMIN B COMP W-C TABLET PO SCH (08:20)
[2017-08-04] MEDS: MIDODRINE HCL 5MG TABLET PO SCH ×3 (08:20→16:38)
[2017-08-04] MEDS: ASPIRIN 81MG EC TABLET PO SCH (08:20)
[2017-08-04] MEDS: DOCUSATE SODIUM 100MG CAPSULE PO SCH ×2 (08:20→16:38)
[2017-08-04] MEDS: PANTOT AC/MIN OIL/PET HY-PHL OINT 52.5GM (AQUAPHOR) TOP SCH (08:21)
[2017-08-04] MEDS: DILTIAZEM HCL 30MG TABLET PO SCH ×2 (08:24→21:00)
[2017-08-04] MEDS: METOPROLOL TARTRATE 25MG TABLET PO SCH ×2 (08:24→21:00)
[2017-08-04 13:47] LABS: PLATELET ESTIMATE DECREASED
[2017-08-04 20:00] VITALS: BP 91/55
[2017-08-04] MEDS: POLYETHYLENE GLYCOL 3350 (17GM) 1 DOSE PACK PO SCH (21:25)
[2017-08-04] MEDS: GUAIFENESIN 200MG/10ML SUGAR FREE UDC PO PRN (22:35)
[2017-08-05] MEDS: IPRATROPIUM/ALBUTEROL 0.5-3(2.5)MG/3ML NEB HHN SCH ×3 (04:07→13:37)
[2017-08-05] MEDS: OMEPRAZOLE 20MG CAPSULE EXTENDED RELEASE PO SCH (06:45)
[2017-08-05] MEDS: METOCLOPRAMIDE HCL 5MG TABLET PO SCH ×2 (06:45→11:49)
[2017-08-05 08:00] VITALS: BP 99/71
[2017-08-05] MEDS: DILTIAZEM HCL 30MG TABLET PO SCH (08:26)
[2017-08-05] MEDS: MIDODRINE HCL 5MG TABLET PO SCH ×2 (08:26→13:00)
[2017-08-05] MEDS: DOCUSATE SODIUM 100MG CAPSULE PO SCH (08:26)
[2017-08-05] MEDS: FOLIC ACID/VITAMIN B COMP W-C TABLET PO SCH (08:26)
[2017-08-05] MEDS: ASPIRIN 81MG EC TABLET PO SCH (08:27)
[2017-08-05] MEDS: METOPROLOL TARTRATE 25MG TABLET PO SCH (08:27)
[2017-08-05] MEDS: PANTOT AC/MIN OIL/PET HY-PHL OINT 52.5GM (AQUAPHOR) TOP SCH (08:28)
[2017-08-05 11:25] VITALS: BP 99/71
== END 2017-08-05 14:30 | disposition home health service (06) | DRG 291 ==
PROVIDERS: ADMIT Physical Medicine & Rehabilitation Spinal Cord Injury Medicine; ATTEND Internal Medicine
PROC: 5A1D60Z (ICD-10-PCS; principal; 2017-07-26)
DX: I13.2 Hypertensive heart and chronic kidney disease with heart failure and with stage 5 chronic kidney disease, or end stage renal disease (principal); I50.43 Acute on chronic combined systolic (congestive) and diastolic (congestive) heart failure; J96.20 Acute and chronic respiratory failure, unspecified whether with hypoxia or hypercapnia; E43 Unspecified severe protein-calorie malnutrition; N18.6 End stage renal disease; D69.6 Thrombocytopenia, unspecified; I42.9 Cardiomyopathy, unspecified; Z99.81 Dependence on supplemental oxygen; I95.9 Hypotension, unspecified; G62.9 Polyneuropathy, unspecified; I48.91 Unspecified atrial fibrillation; M10.9 Gout, unspecified; K21.9 Gastro-esophageal reflux disease without esophagitis; I73.9 Peripheral vascular disease, unspecified; J31.0 Chronic rhinitis; K59.00 Constipation, unspecified; H54.8 Legal blindness, as defined in USA; J44.9 Chronic obstructive pulmonary disease, unspecified; I95.1 Orthostatic hypotension; I25.10 Atherosclerotic heart disease of native coronary artery without angina pectoris; F41.9 Anxiety disorder, unspecified; D63.8 Anemia in other chronic diseases classified elsewhere; R26.9 Unspecified abnormalities of gait and mobility; R53.81 Other malaise; F06.31 Mood disorder due to known physiological condition with depressive features; Z91.013 Allergy to seafood; Z99.2 Dependence on renal dialysis; Z79.899 Other long term (current) drug therapy; Z84.1 Family history of disorders of kidney and ureter; Z83.3 Family history of diabetes mellitus
CPT/HCPCS: 36415; 71010; 80048; 80053; 80061; 82088; 82270; 82306; 82533; 82607; 82728; 82746; 83036; 83520; 83540; 83550; 83735; 84100; 84134; 84153; 84439; 84443; 84481; 84550; 84630; 85025; 85610; 86705; 86709; 86803; 87340; 92523; 93005; 93970; 94640; 94664; 97110; 97116; 97162; 97167; 97530; 97532; 97535; C1893; J1644; J1650; J2997; J7030; J7620; J7626; J8597; Q0162

== ENCOUNTER 2017-09-18 21:03 | Inpatient (IN) | payer MEDICARE, MEDICAID ==
[~2017-09-18] VITALS: Ht 172.7 cm; Wt 81.2 kg
[~2017-09-18 21:03] MED LIST changes: -ATOR20TA65; -CALC0.253; -COLC0.6T66; -FLUT50DI; -FURO20TA4; -OMEP40CA34; -TDUR2
[2017-09-18] MEDS ORDERED: ASPIRIN 81MG TABLET PO STA (21:39)
[2017-09-18] MEDS ORDERED: ONDANSETRON HCL 4MG/2ML VIAL IV STA (21:39)
[2017-09-18] MEDS ORDERED: SODIUM CHLORIDE 0.9% 500 ML IV ONE (21:39)
[2017-09-18] MEDS ORDERED: MORPHINE SULFATE 10 MG/ML CPJ IV ONE (21:45)
[2017-09-18 21:54] LABS: HEMOGLOBIN. 11.7 g/dL (14.0-18.0); MEAN CORPUSCULAR VOLUME 89.1 fL (80.0-94.0); MEAN PLATELET VOLUME 11.6 fl (7.4-10.4); PLATELET 66 x1000/uL (130-400); RED BLOOD CELL COUNT 4.04 mill/uL (4.7-6.1); RED CELL DISTRIBUTION WIDTH 17.2 % (11.6-14.6)
[2017-09-18 22:07] LABS: CARBON DIOXIDE 28 mEq/L (21-32); CHLORIDE 101 mEq/L (98-107)
[2017-09-18 22:12] LABS: TROPONIN I 0.03 ng/mL (0.00-0.04)
[2017-09-18 22:14] LABS: PLATELET ESTIMATE DECREASED
[2017-09-18 22:15] LABS: D-DIMER 5.05 mg/L FEU (<0.50); INR 1.1; PARTIAL THROMBOPLASTIN TIME 49.5 sec (23.4-31.0); PROTHROMBIN TIME 11.4 sec (9.4-11.6)
[2017-09-19] VITALS (7 sets, daily range): BP systolic 3–101; BP diastolic 57–73
[2017-09-19] MEDS ORDERED: DILT30TA3 PO (06:56)
[2017-09-19] MEDS ORDERED: DOCU100P MC (06:56)
[2017-09-19] MEDS ORDERED: MIDO5TAB PO (06:56)
[2017-09-19] MEDS ORDERED: APIX2.5T PO (06:56)
[2017-09-19] MEDS ORDERED: ASCO-339 PO (06:56)
[2017-09-19] MEDS ORDERED: DIPH1TAB24 PO (06:56)
[2017-09-19] MEDS ORDERED: MIDODRINE HCL 5MG TABLET PO SCH (09:00)
[2017-09-19] MEDS ORDERED: MAGNESIUM/ALUMINUM HYDROXIDE/SIMETHICONE 30ML UDC PO NR (10:00)
[2017-09-19] MEDS: OMEPRAZOLE 20MG CAPSULE EXTENDED RELEASE PO SCH (10:27)
[2017-09-19] MEDS: FOLIC ACID/VITAMIN B COMP W-C TABLET PO SCH (10:27)
[2017-09-19] MEDS ORDERED: ALLOPURINOL 100 MG TABLET PO SCH ×2 (10:30→17:00)
[2017-09-19] MEDS ORDERED: DILTIAZEM HCL 30MG TABLET PO SCH ×2 (11:15→21:00)
[2017-09-19] MEDS ORDERED: FUROSEMIDE 40MG/4ML VIAL IVP ONE (12:00)
[2017-09-19 12:22] LABS: BG BASE EXCESS -0.9 mmol/L (-2.0-2.0); BG CARBOXYHEMOGLOBIN 0.9 % (0.5-1.5); BG DEOXYHEMOGLOBIN 1.8 % (0.0-5.0); BG HCO3 ACT 22.7 mmol/L (22.0-26.0); BG METHEMOGLOBIN 0.2 % (0.0-1.5); BG OXYGEN SATURATION 98.2 % (92.0-98.5); BG OXYHEMOGLOBIN 97.1 % (94.0-97.0); BG PCO2 33.9 mmHg (35.0-45.0); BG PH 7.443 (7.350-7.450); BG PO2 122.6 mmHg (75.0-100.0); BG SAMPLE SITE LEFT RADIAL; BG VENT MODE NASAL CANNULA
[2017-09-19] MEDS: IPRATROPIUM/ALBUTEROL 0.5-3(2.5)MG/3ML NEB HHN SCH ×2 (12:47→21:17)
[2017-09-19] MEDS: BUDESONIDE 0.5MG/2ML NEB HHN SCH (12:47)
[2017-09-19] MEDS: MIDODRINE HCL 5MG TABLET PO SCH ×2 (13:00→14:33)
[2017-09-19] MEDS: APIXABAN 2.5 MG TABLET PO SCH ×2 (14:33→21:19)
[2017-09-19] MEDS ORDERED: SODIUM CHLORIDE 0.9% 10ML VIAL ONE (14:43)
[2017-09-19] MEDS: DOCUSATE SODIUM 100MG CAPSULE PO SCH (15:15)
[2017-09-20] VITALS: BP 108/61
[2017-09-20] MEDS: IPRATROPIUM/ALBUTEROL 0.5-3(2.5)MG/3ML NEB HHN SCH ×3 (01:19→16:30)
[2017-09-20 04:00] VITALS: BP 99/64
[2017-09-20] MEDS: OMEPRAZOLE 20MG CAPSULE EXTENDED RELEASE PO SCH (06:28)
[2017-09-20 06:48] LABS: HEMATOCRIT. 33.7 % (42.0-52.0); MEAN CORPUSCULAR HEMOGLOBIN 29.4 pg (28.0-32.0); MEAN CORPUSCULAR VOLUME 90.3 fL (80.0-94.0); MEAN PLATELET VOLUME 11.4 fl (7.4-10.4); PLATELET 66 x1000/uL (130-400); RED BLOOD CELL COUNT 3.73 mill/uL (4.7-6.1); RED CELL DISTRIBUTION WIDTH 17.3 % (11.6-14.6)
[2017-09-20 07:06] LABS: PHOSPHORUS 3.5 mg/dL (2.5-4.9); TROPONIN I 0.06 ng/mL (0.00-0.04)
[2017-09-20 08:00] VITALS: BP 96/69
[2017-09-20] MEDS: APIXABAN 2.5 MG TABLET PO SCH ×2 (08:33→20:54)
[2017-09-20] MEDS: FOLIC ACID/VITAMIN B COMP W-C TABLET PO SCH (08:33)
[2017-09-20] MEDS: ALLOPURINOL 100 MG TABLET PO SCH (08:34)
[2017-09-20] MEDS: MIDODRINE HCL 5MG TABLET PO SCH ×3 (08:34→18:31)
[2017-09-20] MEDS ORDERED: POLYETHYLENE GLYCOL 3350 (17GM) 1 DOSE PACK PO SCH (08:45)
[2017-09-20] MEDS: BUDESONIDE 0.5MG/2ML NEB HHN SCH ×2 (09:21→20:06)
[2017-09-20] MEDS: DOCUSATE SODIUM 100MG CAPSULE PO SCH ×2 (13:47→18:31)
[2017-09-20 17:13] LABS: PLATELET ESTIMATE DECREASED
[2017-09-20] MEDS ORDERED: IPRATROPIUM BROMIDE (0.02%) 0.5MG/2.5ML NEB HHN SCH (18:00)
[2017-09-20 20:00] VITALS: BP 103/75
[2017-09-20] MEDS ORDERED: IPRATROPIUM/ALBUTEROL 0.5-3(2.5)MG/3ML NEB HHN SCH (20:00)
[2017-09-20] MEDS: IPRATROPIUM/ALBUTEROL 0.5-3(2.5)MG/3ML NEB HHN PRN (20:06)
[2017-09-20] MEDS ORDERED: ACETAMINOPHEN 325MG TABLET PO PRN (20:30)
[2017-09-21] VITALS: BP 99/73
[2017-09-21 04:00] VITALS: BP 115/80
[2017-09-21] MEDS: IPRATROPIUM/ALBUTEROL 0.5-3(2.5)MG/3ML NEB HHN PRN (04:54)
[2017-09-21 06:22] LABS: HEMATOCRIT. 32.6 % (42.0-52.0); HEMOGLOBIN. 10.6 g/dL (14.0-18.0); MEAN CORPUSCULAR HEMOGLOBIN 29.4 pg (28.0-32.0); MEAN CORPUSCULAR VOLUME 90.2 fL (80.0-94.0); MEAN PLATELET VOLUME 10.9 fl (7.4-10.4); PLATELET 83 x1000/uL (130-400); RED BLOOD CELL COUNT 3.61 mill/uL (4.7-6.1)
[2017-09-21] MEDS ORDERED: FAMOTIDINE 20MG TABLET PO SCH (07:20)
[2017-09-21 08:00] VITALS: BP 93/62
[2017-09-21 08:30] LABS: PHOSPHORUS 2.8 mg/dL (2.5-4.9); TROPONIN I 0.04 ng/mL (0.00-0.04)
[2017-09-21] MEDS: ALLOPURINOL 100 MG TABLET PO SCH (09:18)
[2017-09-21] MEDS: DOCUSATE SODIUM 100MG CAPSULE PO SCH ×2 (09:18→18:22)
[2017-09-21] MEDS: APIXABAN 2.5 MG TABLET PO SCH (09:18)
[2017-09-21] MEDS: FOLIC ACID/VITAMIN B COMP W-C TABLET PO SCH (09:18)
[2017-09-21] MEDS: MIDODRINE HCL 5MG TABLET PO SCH ×3 (09:19→18:22)
[2017-09-21] MEDS: BUDESONIDE 0.5MG/2ML NEB HHN SCH (09:39)
[2017-09-21] MEDS: IPRATROPIUM/ALBUTEROL 0.5-3(2.5)MG/3ML NEB HHN SCH ×2 (09:39→16:27)
[2017-09-21 12:00] VITALS: BP 98/68
[2017-09-21 16:41] VITALS: BP 105/67
[2017-09-21 17:09] LABS: PLATELET ESTIMATE DECREASED
== END 2017-09-21 20:00 | disposition home or self-care (01) | DRG 291 ==
LOC: ER 22:01 → 6WST 09-19 00:22 → EDBEDREQ 09-19 00:25 → EDBEDREQTM 09-19 00:25 → ENRESERV 09-19 02:11 → CANRESERV 09-19 02:11 → ENRESERV 09-19 02:31
PROVIDERS: ADMIT Internal Medicine; ATTEND Internal Medicine
PROC: 5A1D70Z Performance of Urinary Filtration, Intermittent, Less than 6 Hours Per Day (ICD-10-PCS; principal; 2017-09-20)
DX: I13.2 Hypertensive heart and chronic kidney disease with heart failure and with stage 5 chronic kidney disease, or end stage renal disease (principal); I50.43 Acute on chronic combined systolic (congestive) and diastolic (congestive) heart failure; J96.21 Acute and chronic respiratory failure with hypoxia; I95.89 Other hypotension; D69.6 Thrombocytopenia, unspecified; E44.0 Moderate protein-calorie malnutrition; N18.6 End stage renal disease; I42.0 Dilated cardiomyopathy; I48.1 Persistent atrial fibrillation; I73.9 Peripheral vascular disease, unspecified; J44.9 Chronic obstructive pulmonary disease, unspecified; F41.9 Anxiety disorder, unspecified; H54.62 Unqualified visual loss, left eye, normal vision right eye; I25.10 Atherosclerotic heart disease of native coronary artery without angina pectoris; D64.9 Anemia, unspecified; K59.00 Constipation, unspecified; K21.9 Gastro-esophageal reflux disease without esophagitis; M10.9 Gout, unspecified; Z60.2 Problems related to living alone; Z68.27 Body mass index [BMI] 27.0-27.9, adult; Z79.01 Long term (current) use of anticoagulants; Z79.899 Other long term (current) drug therapy; Z91.013 Allergy to seafood; Z99.2 Dependence on renal dialysis; Z99.81 Dependence on supplemental oxygen; Z90.49 Acquired absence of other specified parts of digestive tract; Z91.15 Patient's noncompliance with renal dialysis; Z82.49 Family history of ischemic heart disease and other diseases of the circulatory system
CPT/HCPCS: 36415; 36600; 71010; 78582; 80048; 80053; 82375; 82805; 83690; 83735; 83880; 84100; 84443; 84484; 84550; 85025; 85379; 85610; 85730; 87804; 93005; 93970; 94640; 94664; 96361; 96374; 97110; 97116; 97162; 97166; 97530; 97535; 99285; A4216; A9558; J2405; J7030; J7040; J7620; J7626